=== PATIENT | female | born 1950 | race Caucasian/White ===

== ENCOUNTER 2025-02-19 09:01 | Emergency (ER) | payer BC, MEDICAID ==
[2025-02-19] MEDS ORDERED: Iopamidol 755 Mg/ML 100 ML Bottle IVPUSH ONE (09:09)
[2025-02-19] MEDS ORDERED: Sodium Chloride 0.9% 10 ML Syringe FLUSH PRN (09:09)
[2025-02-19] MEDS ORDERED: Sodium Chloride 0.9% 100 ML IV SCH (09:15)
[2025-02-19 09:31] LABS: BASOPHILS PERCENT AUTO 0.3 % (0.0-1.0); EOSINOPHILS ABSOLUTE AUTO 0.1 K/mm3 (0.0-0.4); EOSINOPHILS PERCENT AUTO 1.5 % (0.0-6.0); HEMATOCRIT 36.4 % (37.0-47.0); HEMOGLOBIN 11.5 gm/dl (12.0-16.0); IMMATURE GRAN ABSOLUTE AUTO 0.04 K/mm3 (0.00-0.05); IMMATURE GRAN PERCENT AUTO 0.4 % (0.0-0.4); LYMPHOCYTES ABSOLUTE AUTO 2.6 K/mm3 (1.0-4.8); LYMPHOCYTES PERCENT AUTO 27.2 % (24.0-44.0); MEAN CORPUSCULAR HEMOGLOBIN 27.4 pg (28.0-32.0); MEAN CORPUSCULAR HGB CONC 31.6 g/dl (32.0-36.0); MEAN CORPUSCULAR VOLUME 86.7 fl (83.0-99.0); MEAN PLATELET VOLUME 9.6 fl (9.4-12.3); MONOCYTES ABSOLUTE AUTO 0.3 K/mm3 (0.0-0.8); MONOCYTES PERCENT AUTO 3.1 % (0.0-8.0); NEUTROPHILS ABSOLUTE AUTO 6.4 K/mm3 (1.8-7.7); NEUTROPHILS PERCENT AUTO 67.5 % (41.0-71.0); PLATELET COUNT,PLT 249 K/mm3 (150-400); WHITE BLOOD CELL COUNT,WBC 9.41 K/mm3 (3.9-11.3)
[2025-02-19 09:50] LABS: INR 1.01; PROTHROMBIN TIME 10.7 SECONDS (9.7-12.0)
[2025-02-19 09:59] LABS: ALBUMIN 3.5 g/dl (3.4-5.0); ANION GAP 9.9 (5-15); BILIRUBIN TOTAL 0.5 mg/dL (0.2-1.0); C-REACTIVE PROTEIN 1.85 mg/dL (<0.30); CALCIUM 9.3 mg/dL (8.5-10.1); EST CRCL DRUG DOSING (CG) 49.3 mL/min; POTASSIUM,K 3.9 mEq/L (3.5-5.1)
[2025-02-19] MEDS: Iopamidol 755 Mg/ML 100 ML Bottle IVPUSH ONE (09:59)
[2025-02-19] MEDS: Sodium Chloride 0.9% 10 ML Syringe FLUSH PRN (09:59)
[2025-02-19] MEDS: Sodium Chloride 0.9% 100 ML IV SCH (10:00)
[2025-02-19] MEDS: predniSONE 20 MG Tab PO ONE (13:47)
[2025-02-19] MEDS: Amoxicillin/Clavulanate K 875-125 MG Tab PO ONE (13:48)
== END 2025-02-19 13:50 | disposition home or self-care (01) ==
LOC: JD.ED 09:01
DX: I63.81 Other cerebral infarction due to occlusion or stenosis of small artery (principal); J02.9 Acute pharyngitis, unspecified; I10 Essential (primary) hypertension; E03.9 Hypothyroidism, unspecified; Z90.49 Acquired absence of other specified parts of digestive tract; F17.210 Nicotine dependence, cigarettes, uncomplicated; Z86.73 Personal history of transient ischemic attack (TIA), and cerebral infarction without residual deficits; Z79.01 Long term (current) use of anticoagulants; Z79.890 Hormone replacement therapy; Z79.899 Other long term (current) drug therapy; Z79.82 Long term (current) use of aspirin
CPT/HCPCS: 36415; 70450; 70487; 70496; 70498; 70551; 80053; 82947; 84484; 85025; 85610; 86140; 87651; 93005; 99285; A9270; J7512; Q9967; 93010